=== PATIENT | male | born 2000 | race Caucasian/White ===

== ENCOUNTER 2024-10-13 01:17 | Emergency (ER) | payer BC ==
--- NOTE | 2024-10-13 01:35 | EDPHYS ---
Physician Documentation [facility] Name: Pedro Simons Age: 24 yrs Sex: Male : 2000 Arrival Date: 10/13/2024 Time: 01:17 Bed 16 Private MD: ED Physician Sage Whiting HPI: 10/13 01:30 This 24 yrs old Male presents to ER via Unassigned with complaints of mariano depressed , cut neck x 2 , stress. 01:30 The patient or guardian complains of a laceration, .5 cm(s), clean. The symptoms are mariano located on the right jaw and left jaw. Onset: The symptoms/episode began/occurred just prior to arrival. Context: The problem was sustained at home. The patient presents to the emergency department with anxiety, depression. Past psychiatric history: Prior diagnosis: depression. Modifying factors: The symptoms are alleviated by nothing. the symptoms are aggravated by movement. Historical: - Allergies: 02:49 Amoxicillin; lg3 - Home Meds: 02:49 buspirone 15 mg Oral tablet 3 times per day [Active]; sertraline 100 mg oral tablet lg3 daily [Active]; - PMHx: 02:49 Anxiety; Depressive disorder; lg3 - PSHx: 02:49 left knee; lg3 - Immunization history:: Adult Immunizations up to date. - Infectious Disease History:: Denies. - Family history:: not pertinent. - Social history:: Smoking status: Patient/guardian denies using tobacco, Stopped _ months ago 5 Patient uses alcohol, occasionally. Patient/guardian denies using street drugs. ROS: 01:32 Constitutional: Negative for fever, chills, and weight loss, Eyes: Negative for injury, mariano pain, redness, and discharge, ENT: Negative for injury, pain, and discharge, Cardiovascular: Negative for chest pain, palpitations, and edema, Respiratory: Negative for shortness of breath, cough, wheezing, and pleuritic chest pain, Abdomen/GI: Negative for abdominal pain, nausea, vomiting, diarrhea, and constipation, Back: Negative for injury and pain, MS/Extremity: Negative for injury and deformity, Neuro: Negative for headache, weakness, numbness, tingling, and seizure, Allergy/Immunology: Negative for hives, rash, and allergies, Endocrine: Negative for neck swelling, polydipsia, polyuria, polyphagia, and marked weight changes, Hematologic/Lymphatic: Negative for swollen nodes, abnormal bleeding, and unusual bruising, :32 Skin: Positive for laceration(s), :32 Psych: Positive for anxiety, depression, Exam: :32 Constitutional: This is a well developed, well nourished patient who is awake, alert, mariano and in no acute distress. Head/Face: Normocephalic, atraumatic. Eyes: Pupils equal round and reactive to light, extra-ocular motions intact. Lids and lashes normal. Conjunctiva and sclera are non-icteric and not injected. Cornea within normal limits. Periorbital areas with no swelling, redness, or edema. ENT: Nares patent. No nasal discharge, no septal abnormalities noted. Tympanic membranes are normal and external auditory canals are clear. Oropharynx with no redness, swelling, or masses, exudates, or evidence of obstruction, uvula midline. Mucous membranes moist. Chest/axilla: Normal chest wall appearance and motion. Nontender with no deformity. No lesions are appreciated. Cardiovascular: Regular rate and rhythm with a normal S1 and S2. No gallops, murmurs, or rubs. Normal PMI, no JVD. No pulse deficits. Respiratory: Lungs have equal breath sounds bilaterally, clear to auscultation and percussion. No rales, rhonchi or wheezes noted. No increased work of breathing, no retractions or nasal flaring. Abdomen/GI: Soft, non-tender, with normal bowel sounds. No distension or tympany. No guarding or rebound. No evidence of tenderness throughout. Back: No spinal tenderness. No costovertebral tenderness. Full range of motion. MS/ Extremity: Pulses equal, no cyanosis. Neurovascular intact. Full, normal range of motion., bilateral aka Neuro: Awake and alert, GCS 15, oriented to person, place, time, and situation. Cranial nerves II-XII grossly intact. Motor strength 5/5 in all extremities. Sensory grossly intact. Cerebellar exam normal. Normal gait. Psych: Awake, alert, with orientation to person, place and time. Behavior, mood, and affect are within normal limits. :32 Neck: External neck: laceration, that is deep, of the right sternocleidomastoid and left sternocleidomastoid, with no appreciated foreign body, 03:38 ECG was reviewed by the Attending Physician. [facility] Vital Signs: 01:17 Weight 54.43 kg (R); Height 6 ft. 3 in. (R); lg3 02:32 BP 127 / 63; Pulse 67; Resp 16; Temp 96.7(O); Pulse Ox 97% on R/A; sa1 04:00 BP 121 / 68; Pulse 61; Resp 16 S; Pulse Ox 98% on R/A; lg3 08:44 BP 146 / 69; Pulse 84; Pulse Ox 99% ; am7 01:17 Body Mass Index 15.00 (54.43 kg, 190.5 cm) lg3 Laceration: 01:36 Wound Repair of 1cm ( 0.4in ) subcutaneous laceration to right jaw and left jaw. Distal mariano neuro/vascular/tendon intact. Anesthesia: Local anesthetic administered with 4 mls of 1% lidocaine. Wound prep: Simple cleansing by me. Skin closed with 2 5-0 Prolene using interrupted sutures and sterile technique. Dressed with Neosporin. Patient tolerated well. MDM: 01:27 Medical Screening Exam initiated mariano :33 Differential diagnosis: drug withdrawal. acute psychotic break, depression, psychosis mariano secondary to non-compliance, Neck Abrasion. Data reviewed: vital signs, nurses notes, lab test result(s), EKG. Consideration of Admission/Observation Escalation of care including admission/observation considered. I considered the following discharge prescriptions or medication management in the emergency department Medications were administered in the Emergency Department. See MAR. Independent interpretation of the following test(s) in the Emergency Department EKG: See my EKG interpretation above. Test considered but Not performed: Ultrasound no carotid usg. Historians other than the Patient: EMS: ems well informed. Care significantly affected by the following chronic conditions: depression , anxiety. 10/13 01:29 Order name: Acetaminophen; Complete Time: 03:36 [facility] 10/13 01:29 Order name: Basic Metabolic Panel; Complete Time: 03:36 [facility] 10/13 01:29 Order name: CBC with Diff; Complete Time: 03:36 [facility] 10/13 01:29 Order name: ETOH Level; Complete Time: 03:36 [facility] 10/13 01:29 Order name: Hepatic Function; Complete Time: 03:36 [facility] 10/13 01:29 Order name: PT-INR; Complete Time: 03:36 [facility] 10/13 01:29 Order name: Ptt, Activated; Complete Time: 03:36 [facility] 10/13 01:29 Order name: Salicylate; Complete Time: 03:36 [facility] 10/13 01:29 Order name: Urine Drug Screen; Complete Time: 03:36 [facility] 10/13 01:29 Order name: CT Neck Angio; Complete Time: 08:29 [facility] 10/13 01:29 Order name: EKG; Complete Time: 01:30 [facility] 10/13 01:29 Order name: EKG - Nurse/Tech; Complete Time: 02:55 [facility] 10/13 01:29 Order name: IV Saline Lock; Complete Time: 01:49 [facility] 10/13 01:29 Order name: Labs collected and sent; Complete Time: 02:15 [facility] 10/13 01:29 Order name: Suicide Screening ([place]); Complete Time: 02:55 [facility] 10/13 01:31 Order name: Dressing - Wound; Complete Time: 01:49 [facility] 10/13 01:31 Order name: Gloves, Sterile; Complete Time: 01:49 [facility] 10/13 01:31 Order name: Prolene, Sutures; Complete Time: 01:49 [facility] 10/13 01:31 Order name: Setup Suture Tray; Complete Time: 01:49 [facility] EC:38 Rate is 64 beats/min. Rhythm is regular. QRS Stacy is Normal. MA interval is normal. QRS mariano interval is normal. QT interval is normal. No Q waves. T waves are Normal. No ST changes noted. Clinical impression: NSR w/ Non-specific ST/T Changes and No evidence of ischemia. Interpreted by me. Reviewed by me. Administered Medications: 01:48 Drug: Lidocaine Infiltration (2 %) 5 ml 5 ml Infiltration once; to bedside {Note: given rg5 by provider.} Volume: 5 ml; Route: Infiltration; 02:15 Drug: NS 0.9% IV 1000 ml IV at 1 bolus Per protocol; to be given as a bolus over 60 rg5 minutes Route: IV; Rate: 1 bolus; Site: right antecubital; 02:15 Drug: Boostrix Tdap IM 0.5 ml IM once; as a single dose Route: IM; Site: left deltoid; rg5 02:55 Follow up: Response: No adverse reaction rg5 03:00 Follow up: Response: (VIS) Vaccine information sheet provided today. Questions and/or lg3 concerns addressed. VIS edition date: Feb 19, 2021. 02:15 Drug: ceFAZolin IVPB 1 grams IVPB once Route: IVPB; Site: right antecubital; rg5 02:54 Follow up: IV Status: Completed infusion; IV Intake: 50ml rg5 Disposition Summary: 10/13/24 01:35 Transfer Ordered Notes: Transfer Location: Psych Facility mariano Reason: Higher level of care mariano Condition: Fair mariano Problem: new mariano Symptoms: have improved mariano Accepting Physician: to psych(10/13/24 12:03) ld1 Diagnosis - Suicidal ideations mariano - Suicide attempt mariano - Anxiety disorder, unspecified mariano - Laceration without foreign body of other part of head - bilateral neck mariano Forms: - Medication Reconciliation Form mariano - SBAR form mariano Signatures: Dispatcher [employer] EDMS Sage Whiting MD MD cha Nieto, Roman, MD MD rn Able, Lacie, RN RN lg3 Carli Farris RN RN ld1 Bigg Cartagena, RN RN rg5 Corrections: (The following items were deleted from the chart) 01:30 01:30 Neck Angio+CT.RAD.BRZ ordered. EDMS EDMS 01:36 01:35 to psych mariano mariano 12:03 01:36 to psych mariano ld1
[2024-10-13] MEDS ORDERED: LIDOCAINE 2% MPF 5 ML VIAL ONE (01:38)
[2024-10-13] MEDS ORDERED: NA CHLORIDE 0.9% 1,000 ML ONE (01:39)
[2024-10-13] MEDS ORDERED: TDAP (DIPHTH,PERTUSS(ACELL),TET VAC) 0.5 ML VIAL IMVAC ONE (01:39)
[2024-10-13] MEDS ORDERED: CEFAZOLIN SODIUM 1 GM/VIAL ONE (01:39)
[2024-10-13 02:35] LABS: Absolute Lymphocytes (CBC) 1.4 K/uL (0.7-4.9); Absolute Monocytes 0.7 K/uL (0.1-1.3); Absolute Neutrophil 10.4 K/uL (1.8-8.0); Basophils % 0.2 % (0-1.3); Eosinophils % 0.3 % (0-4.4); Hematocrit 37.9 % (39.6-49.0); Hemoglobin 13.2 g/dL (13.6-17.9); MCH 30.3 pg (27.0-35.0); MCHC 34.8 g/dL (32.0-36.0); MCV 87.1 fL (80-100); MPV 8.3 fL (7.6-11.3); Monocytes % 5.9 % (3.3-12.3); Neutrophils % 82.6 % (41.7-73.7); Nucleated Red Blood Cells % 0.1 % (0-0); Platelets 279 thou/uL (152-406); RBC Red Blood Cell Count 4.35 M/uL (4.33-5.43); Red Cell Distribution Width 13.7 % (12.1-15.2)
[2024-10-13 02:37] LABS: PT Prothrombin Time 14.4 SECONDS (10-13.0); PTT, Activated Partial Thromb 29.3 SECONDS (27.2-37.4); Protime INR 1.28
[2024-10-13 03:09] LABS: Barbiturates NEGATIVE (NEGATIVE); Benzodiazepines NEGATIVE (NEGATIVE); Cocaine NEGATIVE (NEGATIVE); METHAMPHETAM NEGATIVE (NEGATIVE); Methadone NEGATIVE (NEGATIVE); Opiates NEGATIVE (NEGATIVE); Phencyclidine NEGATIVE (NEGATIVE); THC Cannibis NEGATIVE (NEGATIVE)
[2024-10-13 03:09] LABS: ALT/SGPT 25 U/L (16-61); AST/SGOT 18 U/L (15-37); Albumin 3.8 g/dL (3.4-5.0); Alkaline Phosphatase 74 U/L (45-117); Anion Gap 8.8 mEq/L (5.0-15.0); BUN Blood Urea Nitrogen 15 mg/dL (7-18); Bicarbonate 27 mEq/L (21-32); Bilirubin Direct 0.2 mg/dL (0-0.2); Bilirubin Indirect, Calculated 0.6 mg/dL (0.2-0.8); Bilirubin Total 0.8 mg/dL (0.2-1.0); Globulin 3.8 g/dL (2.3-3.5); Glomerular Filtration Rate 97 ml/min (=/>90); Glucose Level 103 mg/dL (74-106); Potassium 3.8 mEq/L (3.5-5.1); Protein, Total 7.6 g/dL (6.4-8.2); Sodium Level 133 mEq/L (136-145)
--- NOTE | 2024-10-13 03:41 | RAD REPORT ---
CLINICAL HISTORY: Pain. COMPARISON: None. TECHNIQUE: CT NECK ANGIOGRAPHY WITH IV CONTRAST on 10/13/2024 1:29 AM CDT This exam was performed according to our departmental dose-optimization program, which includes autom ated exposure control, adjustment of the mA and/or kV according to patient size and/or use of iterative reconstruction technique. MIP reconstructions were generated. Stenoses are calculated by NASCET criteria. FINDINGS: The visualized aortic arch and origins of the great vessels unremarkable. The common carotid arteries are patent and symmetric bilaterally. No hemodynamically significant stenosis is observed at the common carotid bifurcations or origins of the internal carotid arteries bilaterally. Vertebral arteries are unremarkable without evidence of pseudoaneurysm, hemodynamically significant s tenosis, or dissection. There is nonspecific inflammation in the superficial subcutaneous fat of the lateral lower neck bilat erally. There is no associated fluid collection. IMPRESSION: Unremarkable CT angiogram of the neck for age without dissection or hemodynamically significant steno sis. Nonspecific inflammation in the superficial subcutaneous fat of the lateral lower neck bilaterally. CAROTID STENOSIS REFERENCE USING NASCET CRITERIA: % ICA stenosis = (1 - narrowest ICA diameter/diameter of distal cervical ICA) x 100. Mild - <50% stenosis. Moderate - 50-69% stenosis. Severe - 70-94% stenosis. Near occlusion - 95-99% stenosis. Occluded - 100% stenosis. Electronically signed by: Hernesto Song MD 10/13/2024 03:34 AM CDT RP Due to temporary technical issues with the [email or web address] reporting system, reports are being corey d by the in-house radiologist without review as a courtesy to ensure prompt reporting the interpreting radiologist is fully responsible for the content of the report. Transcribed Date/Time: 10/13/2024 3:41 AM
--- NOTE | 2024-10-13 12:04 | ER ---
Nurse's Notes [facility] Name: Pedro Simons Age: 24 yrs Sex: Male : 2000 Arrival Date: 10/13/2024 Time: 01:17 Bed 16 Private MD: Diagnosis: Suicidal ideations;Suicide attempt;Anxiety disorder, unspecified;Laceration without foreign body of other part of head-bilateral neck Presentation: 10/13 01:17 Chief complaint: EMS states: PT called 911 after stabbing self in neck multiple times lg3 in a suicide attempt. Coronavirus screen: Client denies travel out of the [place] in the last 14 days. At this time, the client does not indicate any symptoms associated with coronavirus-19. Ebola Screen: No symptoms or risks identified at this time. Initial Sepsis Screen: Does the patient meet any 2 criteria? No. Patient's initial sepsis screen is negative. Does the patient have a suspected source of infection? No. Patient's initial sepsis screen is negative. Risk Assessment: Do you want to hurt yourself or someone else? Patient reports desire/thoughts of hurting themselves or someone else. Provider notified. Onset of symptoms was October 13, 2024. 01:17 Method Of Arrival: EMS: [facility] lg3 01:17 Acuity: NAHUN 2 lg3 Triage Assessment: 01:17 General: Appears in no apparent distress. comfortable, Behavior is cooperative, crying. lg3 Pain: Denies pain. EENT: No deficits noted. No signs and/or symptoms were reported regarding the EENT system. Neuro: No deficits noted. Metcalf Agitation-Sedation Scale (RASS): 0 - Alert and Calm Level of Consciousness is awake, alert, obeys commands, Oriented to person, place, time, situation. Cardiovascular: No deficits noted. Denies chest pain, shortness of breath, Capillary refill < 3 seconds Clubbing of nail beds is absent JVD is absent Patient's skin is warm and dry. Respiratory: No deficits noted. Airway is patent Respiratory effort is even, unlabored, Respiratory pattern is regular, symmetrical. GI: No deficits noted. No signs and/or symptoms were reported involving the gastrointestinal system. : No signs and/or symptoms were reported regarding the genitourinary system. Derm: Skin is intact, is healthy with good turgor, Skin is dry, Skin is normal, Skin temperature is warm Wound noted neck Wound is multiple puncture sites. bleeding controlled. Musculoskeletal: No deficits noted. No signs and/or symptoms reported regarding the musculoskeletal system. Circulation, motion, and sensation intact. Range of motion: intact in all extremities. Historical: - Allergies: 02:49 Amoxicillin; lg3 - Home Meds: 02:49 buspirone 15 mg Oral tablet 3 times per day [Active]; sertraline 100 mg oral tablet lg3 daily [Active]; - PMHx: 02:49 Anxiety; Depressive disorder; lg3 - PSHx: 02:49 left knee; lg3 - Immunization history:: Adult Immunizations up to date. - Infectious Disease History:: Denies. - Family history:: not pertinent. - Social history:: Smoking status: Patient/guardian denies using tobacco, Stopped _ months ago 5 Patient uses alcohol, occasionally. Patient/guardian denies using street drugs. Screenin:17 [facility] ED Fall Risk Assessment (Adult) History of falling in the last 3 months, lg3 including since admission No falls in past 3 months (0 pts) Confusion or Disorientation No (0 pts) Intoxicated or Sedated No (0 pts) Impaired Gait No (0 pts) Mobility Assist Device Used No (0 pt) Altered Elimination No (0 pt) Score/Fall Risk Level 0 - 2 = Low Risk Oriented to surroundings, Maintained a safe environment, Educated pt \\T\\ family on fall prevention, incl call for assistance when getting out of bed, Assessed \\T\\ reinforced patient's understanding of fall precautions. Abuse screen: Denies threats or abuse. Denies injuries from another. Nutritional screening: No deficits noted. Tuberculosis screening: No symptoms or risk factors identified. Assessment: 01:17 General: see triage assessment. lg3 02:56 Reassessment: Patient appears in no apparent distress at this time. No changes from lg3 previously documented assessment. Patient and/or family updated on plan of care and expected duration. Pain level reassessed. Patient is alert, oriented x 3, equal unlabored respirations, skin warm/dry/pink. 04:10 General: Appears in no apparent distress. comfortable, Behavior is calm, cooperative. lg3 Pain: Denies pain. 06:45 Reassessment: Patient appears in no apparent distress at this time. No changes from lg3 previously documented assessment. Patient and/or family updated on plan of care and expected duration. Pain level reassessed. Patient is alert, oriented x 3, equal unlabored respirations, skin warm/dry/pink. 11:16 Reassessment: Nurse to nurse report at [facility] - acceptance given to Unit ld1 board of education secretary. Psych: 01:17 [place] Suicide Severity Screening: In the past month, have you wished you were lg3 or wished you could go to sleep and not wake up? Patient responds "yes." "In the past month, have you actually had any thoughts of killing yourself?" Patient responds "yes." "In your lifetime, have you ever done anything, started to do anything, or prepared to do anything to end your life?" Patient responds "yes." Patient reports suicidal intent within 3 past months. Subjective: Patient's mood is sad, Delusions are denied, Hallucinations are denied Having thoughts of suicide. Plan for suicide is slitting throat. Objective: Patient is cooperative, using poor eye contact, Speech is normal, Affect is appropriate, Patient has mutilated themselves by self sustained punctures to neck by pocket knife. Interventions: Removed personal items and placed in bag. Patient placed in hospital gown. Searched person for dangerous items. Urine collected and sent for urine drug test. Belonging list filled out. Safety Checks: Personal items have been removed. Door is open. No visitors are present at this time. Pt denies substance abuse. Commitment: Patient will be an involuntary commitment. Commitment papers completed. Vital Signs: 01:17 Weight 54.43 kg (R); Height 6 ft. 3 in. (R); lg3 02:32 BP 127 / 63; Pulse 67; Resp 16; Temp 96.7(O); Pulse Ox 97% on R/A; sa1 04:00 BP 121 / 68; Pulse 61; Resp 16 S; Pulse Ox 98% on R/A; lg3 08:44 BP 146 / 69; Pulse 84; Pulse Ox 99% ; am7 01:17 Body Mass Index 15.00 (54.43 kg, 190.5 cm) lg3 ED Course: 01:17 Safety Checks: Personal items have been removed. The door is open or patient has been lg3 placed in a hallway bed/chair. There are no family/friend visitors at this time Sitter present at this time. 01:17 Wound care: to puncture located on neck was cleaned with soap and water, Patient lg3 tolerated well. 01:17 Maintain EMS IV. Dressing intact. Good blood return noted. Site clean \\T\\ dry. Gauge \\T\\ lg 3 site: 20R AC. Flushed with 10 mL NS. 01:17 Arm band placed on right wrist. lg3 01:17 Patient has correct armband on for positive identification. Placed in gown. Bed in low lg3 position. Valuables inventory done. Locked in safe. See valuables checklist. Warm blanket given. Patient is placed in psych hold. 01:27 Patient arrived in ED. vk 01:27 Sage Whiting MD is Attending Physician. mariano 01:30 Bigg Cartagena RN is Primary Nurse. rg5 02:07 CT Neck Angio In Process Unspecified. EDMS 02:22 Initial lab(s) drawn, by me, sent to lab. Urine collected: clean catch specimen, clear. sa1 02:49 Triage completed. lg3 02:55 Assist provider with laceration repair on neck that was 2.5 cm. or less using sutures. lg3 Set up tray. Performed by Sage Whiting MD Patient tolerated well. 03:15 Pt chart faxed to [facility], [facility], [facility], [facility], [facility], [facility] \\T\\ [id number]. 07:49 resent chart to facilities \\T\\[id number] to the following facilities [facility], [facility] , [facility], [facility], [facility] reached out to [facility] no answer. 08:10 [facility] called for nurse to nurse transferred call to nurse. \\T\\ [id number]. vk 08:16 called [facility]- beds at this time. sp 08:46 faxed labs and exclusion criteria to [facility]. sp 11:05 re faxed to [facility] fax number [phone]. faxed to [facility]. sp 12:03 Patient transferred, IV remains in place. ld1 12:27 [facility] accepted patient By Leatha Barrera accepted pt admin sp approval Abigail Goldberg- [place]. report [phone] room 3 [id number]. called [facility] talked to Hever. Administered Medications: 01:48 Drug: Lidocaine Infiltration (2 %) 5 ml 5 ml Infiltration once; to bedside {Note: given rg5 by provider.} Volume: 5 ml; Route: Infiltration; 02:15 Drug: NS 0.9% IV 1000 ml IV at 1 bolus Per protocol; to be given as a bolus over 60 rg5 minutes Route: IV; Rate: 1 bolus; Site: right antecubital; 02:15 Drug: Boostrix Tdap IM 0.5 ml IM once; as a single dose Route: IM; Site: left deltoid; rg5 02:55 Follow up: Response: No adverse reaction rg5 03:00 Follow up: Response: (VIS) Vaccine information sheet provided today. Questions and/or lg3 concerns addressed. VIS edition date: Feb 19, 2021. 02:15 Drug: ceFAZolin IVPB 1 grams IVPB once Route: IVPB; Site: right antecubital; rg5 02:54 Follow up: IV Status: Completed infusion; IV Intake: 50ml rg5 Medication: 02:57 Vaccine Information Statement (VIS) provided today. Questions and/or concerns lg3 addressed. VIS edition date: February 19, 2021. Intake: 02:54 IV: 50ml; Total: 50ml. rg5 Outcome: 01:35 ER care complete, transfer ordered by MD. quintana 12:03 Transferred by ground EMS ld1 12:03 Condition: stable 12:03 Instructed on the need for transfer, 12:03 Patient left the ED. ld1 Signatures: Dispatcher [employer] EDIL Sage Whiting MD MD cha Pinkerton, Shawna sp Able, Lacie, RN RN lg3 Carli Farris RN RN ld1 Shelly Simpson Rommel, RN RN rg5 Sultan Millie sa1 Marsha Brewer Abigail am7 Corrections: (The following items were deleted from the chart) 08:10 07:49 resent chart to facilities \\T\\[id number] james ramirez
[2024-10-13 12:08] VITALS: TEMP 96.7
[2024-10-13 12:11] VITALS: BP 146/69; O2SAT 99
--- NOTE | 2024-10-14 11:19 | EKG ---
Test Date: 2024-10-13 Test Time: 01:49:46 Medical Reception Specialist: MEASUREMENT RESULTS: Intervals: Rate: 64 MD: 172 QRSD: 108 QT: 418 QTc: 431 [place]: P: 61 MD: 172 QRS: 61 T: 29 INTERPRETIVE STATEMENTS: Normal sinus rhythm Incomplete right bundle branch block Borderline ECG No previous ECG available for comparison Electronically Signed On 10-14-24 11:17:50 CDT by Saran Dukes
== END 2024-10-13 12:03 ==
LOC: ER 01:17
DX: S11.91XA Laceration without foreign body of unspecified part of neck, initial encounter (principal); X78.9XXA Intentional self-harm by unspecified sharp object, initial encounter; F41.9 Anxiety disorder, unspecified
CPT/HCPCS: 96365; 93005; 85025; 80048; 36415; 85610; 80076; 85730; 80307; 70498; 96372; 99285; 12011; 80143; 80179; 82077; Q9967; J2003; J7030; J0690